=== PATIENT | male | born 1955 | race Caucasian/White ===

== ENCOUNTER 2018-09-06 15:37 | Emergency (ER) | payer MEDICARE ==
[~2018-09-06] VITALS: Ht 180.3 cm; Wt 77.1 kg
[~2018-09-06 15:37] MED LIST: AMLODIPINE BESY1 TAB PO; ASPI-COR81 M1 PO; CARBATROL200 MG PO; PRILOSEC40 MG PO; ZESTRIL,PRINIVIL5 MG PO
[2018-09-06] MEDS ORDERED: PREDNISONE10 MG PO (17:42)
[2018-09-06] MEDS ORDERED: Motrin,Rufen800 MG PO (17:42)
[2018-09-06] MEDS ORDERED: CYCLOBENZAPRINE10 MG PO (17:42)
== END 2018-09-06 17:51 | disposition home or self-care (01) ==
LOC: ED 15:37
DX: S20.211A Contusion of right front wall of thorax, initial encounter (principal); M54.6 Pain in thoracic spine; I10 Essential (primary) hypertension; F17.200 Nicotine dependence, unspecified, uncomplicated; Z79.899 Other long term (current) drug therapy; W13.2XXA Fall from, out of or through roof, initial encounter; Y93.89 Activity, other specified; Y92.89 Other specified places as the place of occurrence of the external cause; Y99.8 Other external cause status

== ENCOUNTER → 2018-10-02 | Outpatient (CLI) | payer MEDICARE ==
[~2018-10-02] MED LIST changes: +CYCLOBENZAPRINE10 MG PO; +Motrin,Rufen800 MG PO; +PREDNISONE10 MG PO
== END ==
LOC: US 13:00
DX: N40.0 Benign prostatic hyperplasia without lower urinary tract symptoms (principal); R80.9 Proteinuria, unspecified; R10.2 Pelvic and perineal pain

== ENCOUNTER → 2019-11-14 | Outpatient (CLI) | payer MEDICARE | END | disposition home or self-care (01) | LOC: CARD 12:33 | DX: Z01.818 Encounter for other preprocedural examination (principal); I10 Essential (primary) hypertension ==

== ENCOUNTER 2019-11-27 17:46 | Inpatient (IN) | payer MEDICARE ==
[~2019-11-27] VITALS: Ht 180.3 cm; Wt 85.5 kg
[2019-11-27 17:47] VITALS: BP 186/80
[2019-11-27 18:13] LABS: BASO % 0.2 % (0.0-1.0); EOS # 0.1 10*3/uL (0.0-0.4); EOS % 1.1 % (1.0-4.0); HEMATOCRIT 38.3 % (42.0-52.0); HEMOGLOBIN 13.2 g/dl (14.0-18.0); LYMPH # 0.9 10*3/uL (1.3-4.4); MEAN CELL VOLUME 93.4 fl (80.0-94.0); MEAN CORPUSCULAR HGB 32.2 pg (27.0-31.0); MEAN CORPUSCULAR HGB CONC 34.5 g/dl (33.0-37.0); MONO # 1.1 10*3/uL (0.1-1.0); MONO % 8.9 % (3.0-9.0); NEUT % 82.4 % (47.0-73.0); PLATELET COUNT AUTOMATED 268 10*3/uL (130-400); RED CELL DISTRI WIDTH 11.5 % (0-14.5); WHITE BLOOD COUNT 12.2 10*3/uL (4.8-10.8)
[2019-11-27 18:24] LABS: INTERNATIONAL NORM RATIO 0.9 (2.0-3.5)
[2019-11-27 18:27] LABS: ALBUMIN 3.5 gm/dl (3.1-4.5); ALKALINE PHOSPHATASE 89 U/L (45-117); BUN 14 mg/dl (7-24); CHLORIDE 101 mmol/L (98-107); POTASSIUM 4.2 mmol/L (3.5-5.1); SGOT/AST 13 IU/L (3-35); SGPT/ALT 25 U/L (12-78); SODIUM 134 mmol/L (136-145); TOTAL PROTEIN 7.5 gm/dL (6.4-8.2)
[2019-11-27 20:02] LABS: BILIRUBIN NEGATIVE (NEGATIVE); BLOOD 3+ (NEGATIVE); CLARITY CLEAR (CLEAR); COLOR YELLOW (YELLOW); GLUCOSE NEGATIVE (NEGATIVE); KETONE NEGATIVE (NEGATIVE); LEUKO ESTERASE NEGATIVE (NEGATIVE); NITRITE NEGATIVE (NEGATIVE); PH 6.5 (5.0-9.0); SPECIFIC GRAVITY 1.015 (1.005-1.030); UROBILINOGEN 0.2 E.U./dl (0.2-1.0)
[2019-11-27 20:03] LABS: RBC 21-30 rbc/hpf (0-2)
[2019-11-27 21:27] VITALS: BP 124/69
[2019-11-27 23:40] VITALS: BP 146/82
[2019-11-28 00:02] VITALS: BP 141/77
[2019-11-28 00:10] VITALS: BP 145/77
--- NOTE | 2019-11-28 00:18 | NUR ---
A 64, admitted to 4E, under the services of OLVIN Rodríguez DO with a diagnosis of PULMONARY EMBOLISM. Chief complaint is SUDDEN ONSET SOB. Patient arrived via stretcher from ER. Monitor applied. Initial assessment completed. Vital signs taken and recorded. OLVIN RODRÍGUEZ DO notified of admission to the unit. Orders received. See assessment for past medical history, medications and allergies. Patient and/or family oriented to unit. Clothing/patient valuable form completed. ZHANG COOK
--- NOTE | 2019-11-28 01:58 | NUR ---
PATIENT MEDICATED WITH MORPHINE PER DRS ORDERS FOR COMPLAINTS OF PAIN TO THE BACK/RIGHT FLANK AREA. PATIENT RATES PAIN 6/10 RN WILL MONITOR
[2019-11-28] MEDS ORDERED: LOSARTAN POTASS25 M1 PO (02:02)
[2019-11-28] MEDS ORDERED: ATORVASTATIN CA20 M1 PO (02:02)
--- NOTE | 2019-11-28 03:00 | NUR ---
PATIENT IN SEVERE PAIN, MOANING LOUDLY, STATES HE TRIED TO LAY DOWN AND HIS PAIN INTENSIFIED. STATES HE IS SHORT OF BREATH.2 LITERS OXYGEN APPLIED VIA NASAL CANNULA FOR COMFORT.PULSE OXIMETRY IS 100%, HEARTRATE 86-NSR. BLOOD PRESSURE WITHIN NORMAL LIMITS. PATIEN ENCOURAGED TO BREATH THROUGH NOSE AND RN SPOKE WITH PATIENT, HIS PAIN LESSENED TO WHERE HE WAS ABLE TO RESPOND VERBALLY WELL. RN WILL CONINUE TO MONITOR
[2019-11-28 06:47] LABS: BASO % 0.3 % (0.0-1.0); EOS # 0.1 10*3/uL (0.0-0.4); EOS % 0.9 % (1.0-4.0); HEMATOCRIT 37.2 % (42.0-52.0); HEMOGLOBIN 12.5 g/dl (14.0-18.0); LYMPH # 1.1 10*3/uL (1.3-4.4); MEAN CELL VOLUME 96.4 fl (80.0-94.0); MEAN CORPUSCULAR HGB 32.4 pg (27.0-31.0); MEAN CORPUSCULAR HGB CONC 33.6 g/dl (33.0-37.0); MEAN PLATELET VOLUME 9.6 fl (9.6-12.3); MONO # 1.2 10*3/uL (0.1-1.0); MONO % 10.8 % (3.0-9.0); NEUT # 8.6 10*3/uL (2.3-7.9); NEUT % 77.5 % (47.0-73.0); PLATELET COUNT AUTOMATED 253 10*3/uL (130-400); RED BLOOD COUNT 3.86 10*6/uL (4.50-5.90); RED CELL DISTRI WIDTH 11.6 % (0-14.5); WHITE BLOOD COUNT 11.1 10*3/uL (4.8-10.8)
[2019-11-28 07:04] LABS: ACT PARTIAL THROMBO TIME 32.8 SECONDS (20.0-32.1)
[2019-11-28 07:05] LABS: ALBUMIN 3.2 gm/dl (3.1-4.5); BUN 11 mg/dl (7-24); CHLORIDE 105 mmol/L (98-107); CHOLESTEROL 132 mg/dL (<200); CREATININE 0.68 mg/dL (0.70-1.30); PHOSPHOROUS 2.6 mg/dL (2.5-4.9); POTASSIUM 4.7 mmol/L (3.5-5.1); SGOT/AST 11 IU/L (3-35); SGPT/ALT 22 U/L (12-78); SODIUM 137 mmol/L (136-145); TOTAL PROTEIN 7.1 gm/dL (6.4-8.2); TRIGLYCERIDES 80 mg/dl (<150); VLDL CHOLESTEROL 16 mg/dL (6-40)
[2019-11-28 07:11] LABS: ALKALINE PHOSPHATASE 78 U/L (45-117); FREE T4 0.72 ng/dl (0.76-1.46); HDL CHOLESTEROL 45 mg/dl (40-60); LDL CHOLESTEROL 71 mg/dL (9-159)
[2019-11-28 07:32] VITALS: BP 128/74
--- NOTE | 2019-11-28 07:45 | NUR ---
PT IS RESTING IN BED WITH HOB ELEVATED. CLAUDE CALVERT SPNRCC
--- NOTE | 2019-11-28 08:07 | NUR ---
TO RADIOLOGY ACCOMPANIED BY STUDENT CLAUDE CALVERT SPNR[facility]
--- NOTE | 2019-11-28 08:42 | NUR ---
Pt is back on the floor from ultrasound. Pt is sitting up in bed, eating breakfast. [facility]
--- NOTE | 2019-11-28 09:00 | NUR ---
Gear Coding Machine Operator in to talk to patient. Patient states lives at HOME with . There are few steps in the home. Physician: cindy [facility]acy: [facility] Home health services: none Patient's level of ADLs: INDEPENDENT Patient has working utilities: all working DME: none Follow-up physician's appointment after d/c: will be made by hospsitalist nurse director upon discharge Does patient want to access PORTAL?: no Discharge plan discussed with patient, he states he lives at home with , is independent in adls and ambulation, he states he will return home when medically stable and denies any home needs, case management will follow. KYAW PAIZ
[2019-11-28 09:14] LABS: VITAMIN D, 25-HYDROXY 36.2 ng/mL (30-100)
--- NOTE | 2019-11-28 10:15 | NUR ---
PT IS LAYING COMFORTABLY IN BED WITH VISITOR. CLAUDE CALVERT SP[facility]
[2019-11-28 12:00] VITALS: BP 138/71
--- NOTE | 2019-11-28 12:07 | NUR ---
Pt complains of back pain with a pain level of 5. Pt recieved pain medication and will continue to monitor. Charlene kaurcc
--- NOTE | 2019-11-28 12:54 | NUR ---
Pt is resting comfortably, pain med has had some relief. pt states it is now a 2 or 3 Charlene gifford
--- NOTE | 2019-11-28 13:26 | NUR ---
Pt is resting comfortably Charlene Phipps spnr[facility]
[2019-11-28 16:00] VITALS: BP 116/67
--- NOTE | 2019-11-28 16:00 | NUR ---
PATIENT HAS NO COMPLAINTS AT THIS TIME. INSTRUCTED TO TAKE 02 OFF ONLY PUT ON IF FEELS SHORT OF BREATH.
--- NOTE | 2019-11-28 19:29 | NUR ---
PT AWAKE IN BED. RESPIRATIONS EASY. NO S/S OF DISTRESS NOTED. DENIES ANY NEEDS AT THIS TIME. WILL MONITOR. CALL LIGHT IN REACH.
[2019-11-28 20:00] VITALS: BP 133/68
--- NOTE | 2019-11-28 21:23 | NUR ---
PT MEDICATED WITH PO DULCOLAX FOR C/O NO BM FOR 3 DAYS. HYPOACTIVE BSX4 QUADS. PT STATES HE IS PASSING GAS, HOWEVER. WILL MONITOR EFFECTIVENESS. PT REFUSING TEDs DESPITE EDUCATION. WILL MONITOR. CALL LIGHT IN REACH.
[2019-11-29] VITALS: BP 122/71
[2019-11-29 06:03] LABS: BASO % 0.3 % (0.0-1.0); EOS # 0.1 10*3/uL (0.0-0.4); HEMATOCRIT 37.1 % (42.0-52.0); HEMOGLOBIN 12.4 g/dl (14.0-18.0); LYMPH # 1.4 10*3/uL (1.3-4.4); LYMPH % 11.9 % (27.0-41.0); MEAN CELL VOLUME 96.4 fl (80.0-94.0); MEAN CORPUSCULAR HGB 32.2 pg (27.0-31.0); MEAN CORPUSCULAR HGB CONC 33.4 g/dl (33.0-37.0); MEAN PLATELET VOLUME 10.3 fl (9.6-12.3); MONO # 1.3 10*3/uL (0.1-1.0); MONO % 11.6 % (3.0-9.0); NEUT # 8.6 10*3/uL (2.3-7.9); NEUT % 74.8 % (47.0-73.0); PLATELET COUNT AUTOMATED 284 10*3/uL (130-400); RED BLOOD COUNT 3.85 10*6/uL (4.50-5.90); RED CELL DISTRI WIDTH 11.7 % (0-14.5); WHITE BLOOD COUNT 11.5 10*3/uL (4.8-10.8)
[2019-11-29 06:24] LABS: ALBUMIN 3.1 gm/dl (3.1-4.5); BUN 14 mg/dl (7-24); CHLORIDE 104 mmol/L (98-107); CREATININE 0.78 mg/dL (0.70-1.30); POTASSIUM 4.3 mmol/L (3.5-5.1); SGOT/AST 13 IU/L (3-35); SGPT/ALT 23 U/L (12-78); SODIUM 133 mmol/L (136-145)
[2019-11-29 06:26] LABS: ALKALINE PHOSPHATASE 73 U/L (45-117); TOTAL PROTEIN 7.1 gm/dL (6.4-8.2)
[2019-11-29 07:55] VITALS: BP 130/80
--- NOTE | 2019-11-29 09:00 | NUR ---
case management visits with patient, he states he will return home possibly today and denies any home needs, he stated he would like to obtained his precriptions from [facility] pharmacy, hospitalist nurse director notified
[2019-11-29] MEDS ORDERED: XARE15TA PO (11:06)
[2019-11-29] MEDS ORDERED: XARE20MG PO (11:06)
--- NOTE | 2019-11-29 12:50 | NUR ---
PATIENT DISCHARGED TO HOME
== END 2019-11-29 12:50 | disposition home or self-care (01) | DRG 175 ==
LOC: ED 17:46 → 4E 23:24 → EDHOLD 23:24 → 4E 23:47
PROVIDERS: Emergency Medicine; Family Medicine; Internal Medicine; ADMIT Internal Medicine
DX: I26.93 Single subsegmental thrombotic pulmonary embolism without acute cor pulmonale (principal); J96.01 Acute respiratory failure with hypoxia; R65.11 Systemic inflammatory response syndrome (SIRS) of non-infectious origin with acute organ dysfunction; E87.1 Hypo-osmolality and hyponatremia; R73.9 Hyperglycemia, unspecified; R31.9 Hematuria, unspecified; D64.9 Anemia, unspecified; I10 Essential (primary) hypertension; N40.0 Benign prostatic hyperplasia without lower urinary tract symptoms; G40.909 Epilepsy, unspecified, not intractable, without status epilepticus; K21.9 Gastro-esophageal reflux disease without esophagitis; E83.41 Hypermagnesemia; Z88.8 Allergy status to other drugs, medicaments and biological substances; Z79.899 Other long term (current) drug therapy; Z81.1 Family history of alcohol abuse and dependence; Z84.1 Family history of disorders of kidney and ureter

== ENCOUNTER → 2020-03-18 | Outpatient (CLI) | payer MEDICARE ==
[~2020-03-18] MED LIST changes: +ATORVASTATIN CA20 M1 PO; +LOSARTAN POTASS25 M1 PO; +XARE15TA PO; +XARE20MG PO
== END | disposition home or self-care (01) ==
LOC: US 10:00 → LAB 10:09
DX: N28.1 Cyst of kidney, acquired (principal); R97.20 Elevated prostate specific antigen [PSA]; I10 Essential (primary) hypertension

== ENCOUNTER 2024-05-07 11:39 | Emergency (ER) | payer MEDICARE ==
[~2024-05-07] VITALS: Ht 180.3 cm; Wt 81.6 kg
[2024-05-07] MEDS ORDERED: MORPHINE Sulfate 2 MG/ML SYR IV ONE (11:55)
[2024-05-07] MEDS ORDERED: Tdap Vaccine 0.5 ML SYR (Adult Vaccine) IM ONE (11:55)
[2024-05-07] MEDS ORDERED: ceFAZolin sodium 2 GM in SYRINGE INFUSION 20 ML IV ONE (11:55)
[2024-05-07] MEDS ORDERED: ceFAZolin sodium/sodium chlor 20 ML IV ONE (12:05)
== END 2024-05-07 15:00 | disposition short-term general hospital (02) ==
LOC: ED 11:39
DX: S62.521A Displaced fracture of distal phalanx of right thumb, initial encounter for closed fracture (principal); Z88.8 Allergy status to other drugs, medicaments and biological substances; Z79.899 Other long term (current) drug therapy; Z98.890 Other specified postprocedural states; W22.09XA Striking against other stationary object, initial encounter; Z86.711 Personal history of pulmonary embolism; Y93.89 Activity, other specified; Y92.89 Other specified places as the place of occurrence of the external cause; Y99.8 Other external cause status